=== PATIENT | male | born 2000 | race Caucasian/White ===

== ENCOUNTER 2024-10-05 10:56 | Observation (INO) | payer OTHER ==
[~2024-10-05] VITALS: Ht 185.4 cm; Wt 85.6 kg
--- NOTE | ~2024-10-05 | OR ---
[facility] [address] [place] [address] Draft DATE OF OPERATION: 10/05/2024 SURGEON: Jung Zaragoza DO PREOPERATIVE DIAGNOSIS: Acute suppurative appendicitis. POSTOPERATIVE DIAGNOSIS: Acute suppurative appendicitis. PROCEDURE PERFORMED: Laparoscopic appendectomy. ANESTHESIA: General. ESTIMATED BLOOD LOSS: Minimal. DRAINS: None. COMPLICATIONS: None. DESCRIPTION OF PROCEDURE: The patient was brought to the operating room, placed in supine position. After the abdomen was sterilely shaved, prepped and draped in usual fashion utilizing a linear incision in the umbilical region, skin was incised with a scalpel. A Veress needle was then placed in the abdomen, once insufflated with 4 liters of CO2 gas, a 5 mm trocar exchanged with a Veress needle and utilizing a Visiport technique was placed inside the abdominal cavity. General x-rays was then carried out with the scope around the region of the right lower quadrant of the cecum. The tip of the appendix was noted to be acutely inflamed. Decision to proceed was then made. A separate 5 mm incision was made in the suprapubic region and a separate 12 mm incision was made in the left lower quadrant. A 5 mm trocar and a 12 mm trocar were placed under direct visualization as well. The appendix was then mobilized throughout the retrocecal aspect of the cecum in its position. Mesoappendix was identified, utilizing the LigaSure, fulgurating device and energy were then utilized to sequentially ligate the mesoappendix, this was then carried down to the appendiceal base, appendix was then grasped with grasping PATIENT NAME: LIZZETH ELLIOTT OPERATIVE REPORT DATE OF : [birth year] REPORT #: [id number] PHYSICIAN: JUNG ZARAGOZA DO PCP: [facility] CORRECTIONAL REPORT IS CONFIDENTIAL AND NOT TO BE RELEASED WITHOUT AUTHORIZATION [facility] [address] [place], [place] [address] Draft forceps and brought up to the anteriorly and exposed the base of the appendix. An Endo-MELQUIADES Gold load was placed across the base of the appendix, closed and far transected the appendix from the cecum. Hemostasis and sealing were assured. Appendix was then placed in an Endobag, brought up to the 12 mm port. The region was then copiously irrigated and dried. No events occurred. All irrigant was removed. The 12 mm port was then closed with an interrupted scctel-do-susse fashion with 0 Vicryl suture and the skin was closed with 4-0 Monocryl in a subcuticular fashion. The Dermabond dressing was applied. The patient tolerated the procedure well and taken to recovery room in satisfactory condition. DO ZECHARIAH Abdalla/MODL /[id number] Copies: ~ PATIENT NAME: LIZZETH ELLIOTT OPERATIVE REPORT DATE OF : [birth year] REPORT #: [id number] PHYSICIAN: JUNG ZARAGOZA DO PCP: [facility]RECTIONAL REPORT IS CONFIDENTIAL AND NOT TO BE RELEASED WITHOUT AUTHORIZATION
[2024-10-05] MEDS ORDERED: REMERON30 MG PO (11:12)
[2024-10-05] MEDS ORDERED: MELATONIN5 M2 PO (11:12)
[2024-10-05] MEDS ORDERED: TYLENOL EXTRA500 MG PO (11:13)
[2024-10-05] MEDS ORDERED: SODIUM CHLORIDE 0.9% 1,000 ML IV ONE (11:45)
[2024-10-05 12:19] LABS: BASOPHILS 0.5 % (0-2); HEMATOCRIT 44.1 % (35.0-50.0); HEMOGLOBIN 15.4 g/dL (12.0-18.0); LYMPHOCYTES 27.8 % (24-44); MCH 30.9 (27-36); MCV 88.3 fl (81-99); MONOCYTES 9.2 % (0-12); NEUTROPHILS 58.5 % (39-80); PLATELET COUNT 230 K/uL (140-440); RBC 4.99 M/ul (4.3-5.7); RDW 12.7 (10.5-15.0)
[2024-10-05 12:35] LABS: ALBUMIN 3.8 g/dL (3.4-5.0); ANION GAP 9.9 (7-21); BILIRUBIN, TOTAL 0.4 mg/dL (0.2-1.0); CALCIUM 9.7 mg/dL (8.5-10.1); POTASSIUM 4.9 mmol/L (3.5-5.1); PROTEIN, TOTAL 7.6 g/dL (6.4-8.2)
[2024-10-05] MEDS ORDERED: SEVOFLURANE 250 ML BTL INH ONE (13:18)
[2024-10-05 13:53] LABS: BILIRUBIN, URINE NEGATIVE (negative); BLOOD/HGB, URINE NEGATIVE (Negative); KETONE, URINE NEGATIVE (Negative); LEUK ESTERASE, URINE NEGATIVE (negative); NITRITE, URINE NEGATIVE (negative); PH, URINE 6.5 (5-7)
[2024-10-05] MEDS ORDERED: PIPERACILLIN/TAZOBACTAM 3.375 GM in SODIUM CHLORIDE 0.9% 100 ML IV ONE (14:15)
[2024-10-05] MEDS ORDERED: LACTATED RINGER'S 1,000 ML IV SCH ×2 (14:30→15:15)
[2024-10-05] MEDS ORDERED: HYDROmorphone HCL 1 MG/ML SYR IV PRN ×2 (15:15→16:30)
[2024-10-05] MEDS ORDERED: ACETAMINOPHEN 325 MG TAB PO PRN (15:15)
[2024-10-05] MEDS ORDERED: ondansetron HCL 4 MG/2 ML VIAL IV PRN ×2 (15:15→16:30)
[2024-10-05] MEDS ORDERED: SUGAMMADEX SODIUM 200 MG/2 ML ML ONE (15:55)
[2024-10-05] MEDS ORDERED: dexmedeTOMIDine HCl 200 MCG/2 ML VIAL ONE (15:55)
[2024-10-05] MEDS ORDERED: MIDAZOLAM HCL 2 MG/2 ML VIAL ONE (15:55)
[2024-10-05] MEDS ORDERED: ondansetron HCL 4 MG/2 ML VIAL ONE (15:55)
[2024-10-05] MEDS ORDERED: LIDOCAINE HCL 2% 5 ML SDV ONE (15:55)
[2024-10-05] MEDS ORDERED: fentaNYL citrate 100 MCG/2 ML VIAL ONE (15:55)
[2024-10-05] MEDS ORDERED: ACETAMINOPHEN 1,000 MG/100 ML VIAL ONE (15:55)
[2024-10-05] MEDS ORDERED: ROCURONIUM BROMIDE 50 MG/5 ML SYR ONE (15:55)
[2024-10-05] MEDS ORDERED: KETOROLAC TROMETHAMINE 30 MG/ML VIAL ONE (15:55)
[2024-10-05] MEDS ORDERED: propofoL 200 MG/20 ML VIAL ONE (15:55)
[2024-10-05] MEDS ORDERED: DEXAMETHASONE SOD PHOS 4 MG/ML VIAL ONE (15:55)
[2024-10-05] MEDS ORDERED: LIDOCAINE HCL 2% 20 MG/ML VIAL INJ ONE (15:55)
[2024-10-05] MEDS ORDERED: SUCCINYLCHOLINE IN 0.9% NACL 200 MG/10 ML SYRINGE ONE (15:55)
[2024-10-05] MEDS ORDERED: LACTATED RINGER'S 1,000 ML IV ONE (16:28)
[2024-10-05] MEDS ORDERED: PROCHLORPERAZINE EDISYLATE 10 MG/2 ML VIAL IV PRN (16:30)
[2024-10-05] MEDS ORDERED: NALOXONE HCL 0.4 MG SYR IV PRN (16:30)
[2024-10-05] MEDS ORDERED: MIDAZOLAM HCL 2 MG/2 ML VIAL IV PRN (16:30)
[2024-10-05] MEDS ORDERED: droPERidol 5 MG/2 ML VIAL IV PRN (16:30)
[2024-10-05] MEDS ORDERED: IBLOOD GLUCOSE TEST STRIP 1 EA TEST VI PRN (16:30)
[2024-10-05] MEDS ORDERED: fentaNYL citrate 50 MCG/ML SDV IV PRN (16:30)
--- NOTE | 2024-10-05 17:26 | NUR ---
10/05/24 1726 Deborah Burk 1659-PT ARRIVES TO PACU VIA STRETCHER, RESTING SEMI FOWLERS, PT NOT RESPONSIVE TO NOXIOUS STIMULI, OPA IN PLACE, VSS ON 6L VIA MASK, RR EVEN AND UNLABORED. 2 OFFICERS FROM [facility] AT BEDSIDE PT IN ANKLE RESTRAINTS. 1705-ALL 3 LAP SITES COVERED W/ GAUZE AND TAPE, PER MD FOR PLACEMENT OF [facility] RESTRAINTS. 1710-PT AWAKENS TO VERBAL AND TACTILE STIMULI, OPA REMOVED AND TITRATED TO RA, VS REMAIN STABLE. PT PLACED IN BELLY AND WRIST RESTRAINTS BY [facility] OFFICERS. 1715-PT RESTING IN BED SAFELY, DENIES PAIN OR NAUSEA, VSS ON RA.
--- NOTE | 2024-10-05 17:35 | NUR ---
Pt arrived to room and pt report received from SAMIR Cabrera. Pt is A&O x4, reports "a little pain" in the abdomen after being transferred via sheet slide from OR bed to room bed. Dressings are CDI, skin assessment performed with SAMIR Cabrera. Assessment done at this time. IV site is patent, without redness, swelling, or leaking, and pt has no c/o burning/pain/stinging, understands to use call light if he notices any of those issues at the site. Pt denies any nausea at this time. Bedside tray set up with dinner (clear liquid) and advised pt that we will give him a regular dinner tray if he tolerates clear liquids without nausea or vomiting. Call light placed within reach, pt oriented to room, call light, tv, etc. Pt and correctional officers all denied needs at this time. Pt is in belly, wrist, and ankle restraints.
[2024-10-05 17:45] VITALS: BP 137/88
--- NOTE | 2024-10-05 18:28 | NUR ---
Pt up to void in urinal in the bathroom, asked to have the bathroom sink faucet turned on. Correctional officers in the room. Pt tolerated clear liquids well and requested a regular diet tray which was provided to him.
[2024-10-05 19:00] VITALS: BP 139/75
[2024-10-05 19:05] VITALS: BP 139/75
--- NOTE | 2024-10-05 19:40 | NUR ---
REPORT RECEIVED FROM DAY SHIFT RN. PATIENT RESTING IN BED. TWO GUARDS AT BEDSIDE. PATIENT HAS NO CURRENT NEEDS. CALL LIGHT IN REACH.
[2024-10-05 20:02] VITALS: BP 142/83
--- NOTE | 2024-10-05 20:06 | NUR ---
PRODUCT DEVELOPMENT DIRECTOR OBTAINED VITALS AND I&O. PT STATES NO NEEDS AT THIS TIME. CALL LIGHT WITHIN REACH AND GUARDS IN ROOM.
[2024-10-05 20:20] VITALS: BP 142/83
--- NOTE | 2024-10-05 20:28 | NUR ---
PATIENT RESTING IN BED. SCHEDULED MEDICATION ADMINISTERED. ASSESSMENT COMPLETE. x3 LAP SITES C/D/I WITH NO DRAINAGE NOTED. SCDs IN PLACE. CPOX IN PLACE. PATIENT HAS NO FURTHER NEEDS AT THIS TIME. CALL LIGHT IN REACH.
[2024-10-05] MEDS ORDERED: FAMOTIDINE 20 MG/ 2 ML VIAL IV SCH (21:00)
[2024-10-05 21:03] VITALS: BP 138/74
[2024-10-05] MEDS ORDERED: PIPERACILLIN/TAZOBACTAM 3.375 GM in SODIUM CHLORIDE 0.9% 100 ML IV SCH (22:00)
--- NOTE | 2024-10-05 22:20 | NUR ---
IV ABX INFUSING PER ORDER. PATIENT DENIES NEEDS AT THIS TIME. CALL LIGHT IN REACH.
--- NOTE | 2024-10-06 00:14 | NUR ---
PATIENT RESTING IN BED. DENIES NEEDS AT THIS TIME. CALL LIGHT IN REACH.
[2024-10-06 01:39] VITALS: BP 147/80
--- NOTE | 2024-10-06 01:43 | NUR ---
CALL LIGHT ANSWERED. PT NEEDED TO USE BATHROOM. PT ASSISTED TO BATHROOM WITH GUARD. PT VOIDED AND BACK IN BED. RN AND LAUNDRETTE OWNER OBTAINED VITALS AND I&O. PT REQUESTED PAIN MED. RN IN ROOM. PT GIVEN SANDWICH UPON REQUEST AND NO FURTHER NEEDS STATED AT THIS TIME. CALL LIGHT WITHIN REACH AND GUARDS IN ROOM.
--- NOTE | 2024-10-06 01:51 | NUR ---
VS AND I&Os OBTAINED AND RECORDED. PATIENT REPORTING 7/10 ABD PAIN. PRN PAIN MEDICATION ADMINISTERED PER PATIENT REQUEST. NEW BAG IV FLUID INFUSING PER ORDER. NO FURTHER NEEDS. CALL LIGHT IN REACH.
--- NOTE | 2024-10-06 02:49 | NUR ---
LIZZETH IS AWAKE IN BED ON ROOM AIR.
[2024-10-06 05:41] VITALS: BP 145/65
[2024-10-06 05:44] VITALS: BP 145/65
--- NOTE | 2024-10-06 05:51 | NUR ---
PATIENT RESTING IN BED. VS AND I&Os OBTAINED AND RECORDED. ASSESSMENT COMPLETE. ABD DRESSINGS C/D/I WITH NO DRAINAGE NOTED. SCHEDULED IV ABX INFUSING PER ORDER. PATIENT HAS NO FURTHER NEEDS AT THIS TIME. CALL LIGHT IN REACH.
--- NOTE | 2024-10-06 07:13 | NUR ---
Pt report received from SAMIR Sarmiento. Pt resting in bed, supine, A&O, watching television, correctional officers in room. Pt denies pain at this time. Call light in reach.
--- NOTE | 2024-10-06 07:29 | NUR ---
MED REC COMPLETE
[2024-10-06] MEDS ORDERED: HYDROCODON-ACE1 EA11 PO (07:59)
[2024-10-06] MEDS ORDERED: CIPRO500 MG PO (08:00)
--- NOTE | 2024-10-06 08:14 | NUR ---
UR CLINICAL REVIEW: [place], MEETS APPENDECTOMY CRITERIA DC [facility] MET, HAS DC ORDERS THIS AM. [place] OBS 10/05/2024 @ 1430 ORDER MATCHES REG NO AUTH FOR [facility] REQUIRED DC TO [facility] TODAY 10/07/24
--- NOTE | 2024-10-06 08:35 | NUR ---
In with pt for assessment. Pt is resting in bed, reports his pain is about a 6 out of 10. Pt was provided with PO tylenol at this time. Meds administered per emar, IVF running, IV site patent, no redness/swelling/leaking/pain noted. Pt up to void, SBA with line and tube management. COs in room.
--- NOTE | 2024-10-06 09:01 | NUR ---
[facility] PATIENT DOES NOT WEAR HOME OXYGEN. PATIENT BACK TO INFIMIARY AT TIME OF DISCHARGE. NO CM NEEDS.
[2024-10-06 09:47] VITALS: BP 130/71
--- NOTE | 2024-10-06 09:53 | NUR ---
SPOKE WITH RN AT [facility]. INFORMED HER PATIENT IS BEING DISCHARGED TODAY. FLOOR STAFF ARE FAXING ORDERS AND WILL CALL WITH REPORT. NO OTHER NEEDS.
--- NOTE | 2024-10-06 10:11 | NUR ---
Pt report called to [facility] Nurse Glez
--- NOTE | 2024-10-09 16:39 | PATH ---
[facility] [address] [place], [place] [address] Signed SPECIMEN(S): A APPENDIX SPECIMEN SOURCE: A. APPENDIX CLINICAL HISTORY: Appendicitis FINAL PATHOLOGIC DIAGNOSIS: Appendix, appendectomy: - Acute appendicitis with periappendicitis and serositis. - Focal mucosal necrosis. JVR:clv MICROSCOPIC EXAMINATION: Histologic sections of all submitted blocks are examined by light microscopy. These findings, together with the gross examination, support the pathologic diagnosis. GROSS DESCRIPTION: The specimen, labeled and designated "Lopez Soni, appendix," is received in formalin and consists of Specimen: Appendix with mesoappendix. Dimensions: 7.8 x 1.1 x 1 cm. Serosa: Thomas-pink with dilated vasculature. Defect: Not grossly identified. Inking: Staple line is inked Blue. Mucosa: Thomas-brown and pinpoint. Fecalith: Not grossly identified. Additional: None. Portainer Operator sections are submitted in (A1). AA (under the direct supervision of a pathologist) The Gross Description was prepared using a voice recognition system. The report was reviewed for accuracy; however, sound-alike word errors, addition and/or deletions may occur. If there is any question about this report, please contact Client Services. PERFORMING LABORATORY: Technical component was performed by [employer], [address] [place] [id number] (CLIA# [id number]). Professional interpretation was performed by [facility] [place] [facility], [address] PATIENT NAME: EARL,LIZZETH RAYN PATHOLOGY DATE OF : [birth year] REPORT #: [id number] PHYSICIAN: [facility] PATHOLOG[facility] PCP: [facility] CORRECTIONAL REPORT IS CONFIDENTIAL AND NOT TO BE RELEASED WITHOUT AUTHORIZATION [facility] [address] [place] [id number] [place] [address] (CLIA#: [id number]). Diagnostician: Santiago Jules MD Pathologist Electronically Signed 10/09/2024 Copies: ~ PATIENT NAME: LIZZETH SONI PATHOLOGY DATE OF : [birth year] REPORT #: [id number] PHYSICIAN: [facility] PCP: [facility] CORRECTIONAL REPORT IS CONFIDENTIAL AND NOT TO BE RELEASED WITHOUT AUTHORIZATION
== END 2024-10-06 10:55 | disposition home or self-care (01) ==
LOC: ED 10:56 → DS 14:30 → MS 14:31 → ED 14:35 → DS 14:35 → MS 14:36 → DS 15:00 → MS 15:00
PROVIDERS: Emergency Medicine; ADMIT Surgery; ATTEND Surgery
PROC: 0DTJ0ZZ Resection of Appendix, Open Approach (ICD-10-PCS; principal; 2024-10-05 15:00)
DX: K35.33 Acute appendicitis with perforation, localized peritonitis, and gangrene, with abscess (principal); I48.91 Unspecified atrial fibrillation; Z79.899 Other long term (current) drug therapy
CPT/HCPCS: 00840; 36415; 74177; 80053; 81003; 83690; 85025; 94762; A9270; G0378; J0131; J0330; J1100; J1171; J1885; J2003; J2250; J2405; J2543; J2704; J3010; J3490; J7030; J7121; Q9967